=== PATIENT | male | born 1950 | race Caucasian/White ===

== ENCOUNTER → 2016-03-28 | Outpatient (CLI) | payer OTHER ==
[~2016-03-28] MED LIST: ACTOPLUS MET 11 EAC1 PO; ALTACE10 M1 PO; ALTACE10 MG PO; ASPIR 8181 M1 PO; ATORVASTATIN CA40 MG PO; CYMBALTA60 MG PO; DEPAKOTE 250MG250 M1 PO; DULERA 200 MCG/13 GM INH; FLEXERIL PO; HUMALOG100 UNIT/1 SUBQ; INDOMETHACIN 5050 M1 PO; INVOKANA100 MG PO; LANTUS SC; NABUMETONE 750750 M1 PO; NORCO 5-325 TA1 EACH PO; ONDANSETRON HCL4 M2 PO; PERCOCET PO; PREDNISONE 10 M10 M1 PO; PROAIR HFA8.5 GM IH; PROAIR HFA8.5 GM INH; PROTONIX40 M2 PO; PROVENTIL HFA6.7 G1 INH; SIMVASTATIN40 MG PO; SINGULAIR 10 MG10 M1 PO; SYMBICORT160 MCG/4. INH; VICODIN 5-5001 EACH PO; VITAMIN D31000 UNI2 PO; ZOFRAN ODT4 MG PO
== END ==
LOC: RAD 16:20
DX: R06.02 Shortness of breath (principal); J98.11 Atelectasis

== ENCOUNTER → 2017-09-20 | Outpatient (CLI) | payer OTHER ==
[2017-09-20 12:12] LABS: HEMATOCRIT 50.1 % (42.0-52.0); HEMOGLOBIN 16.7 gm/dL (14.0-18.0); MCH 31.4 pg (26.0-34.0); MCHC 33.3 g/dL (28.0-37.0); MCV 94.4 fL (80.0-100.0); RBC 5.31 mil/uL (4.50-6.00); RDW 13.8 % (10.5-14.5)
[2017-09-20 13:12] LABS: ALBUMIN 3.9 g/dL (3.4-5.0); ANION GAP 9 mmol/L (7-16); BUN 24 mg/dL (7-18); CALCIUM 9.9 mg/dL (8.5-10.1); CHLORIDE 97 mmol/L (98-107); CO2 26 mmol/L (21-32); CREATININE 1.8 mg/dL (0.7-1.3); GLUCOSE 385 mg/dL (74-106); SGOT 20 U/L (15-37); SGPT 47 U/L (30-65); SODIUM 132 mmol/L (136-145); TOTAL BILIRUBIN 1.4 mg/dL (<0.1-1.0); TOTAL PROTEIN 7.2 g/dL (6.4-8.2); TROPONIN-I <0.06 ng/mL (<0.06)
== END ==
LOC: ULTRA 08:58 → RAD 08:58
PROVIDERS: Internal Medicine Pulmonary Disease
DX: J44.9 Chronic obstructive pulmonary disease, unspecified (principal); J45.40 Moderate persistent asthma, uncomplicated; M79.89 Other specified soft tissue disorders; M79.662 Pain in left lower leg; M79.661 Pain in right lower leg

== ENCOUNTER → 2017-12-06 | Outpatient (CLI) | payer OTHER | LOC: RAD 09:19 | DX: M47.812 Spondylosis without myelopathy or radiculopathy, cervical region (principal); M47.814 Spondylosis without myelopathy or radiculopathy, thoracic region; E11.9 Type 2 diabetes mellitus without complications; I10 Essential (primary) hypertension; E78.00 Pure hypercholesterolemia, unspecified; K21.9 Gastro-esophageal reflux disease without esophagitis; J45.909 Unspecified asthma, uncomplicated; Z79.4 Long term (current) use of insulin ==

== ENCOUNTER → 2018-07-17 | Outpatient (CLI) | payer OTHER | LOC: RAD 07:42 | DX: J98.4 Other disorders of lung (principal); Z98.890 Other specified postprocedural states ==

== ENCOUNTER → 2018-12-22 | Outpatient (CLI) | payer OTHER ==
[2018-12-22 16:02] LABS: HEMATOCRIT 44.2 % (42.0-52.0); HEMOGLOBIN 14.6 gm/dL (14.0-18.0); MCHC 32.9 g/dL (28.0-37.0); MCV 97.1 fL (80.0-100.0); RBC 4.55 mil/uL (4.50-6.00); WBC 6.3 thou/uL (4.0-11.0)
[2018-12-22 16:20] LABS: ALBUMIN 3.5 g/dL (3.4-5.0); CALCIUM 8.8 mg/dL (8.5-10.1); CREATININE 1.4 mg/dL (0.7-1.3); TOTAL BILIRUBIN 0.7 mg/dL (<0.1-1.0); TOTAL PROTEIN 6.8 g/dL (6.4-8.2)
[2018-12-22 16:45] LABS: POTASSIUM 6.3 mmol/L (3.5-5.1)
== END ==
LOC: ULTRA 09:09 → RAD 09:09 → CAT 09:09
PROVIDERS: Internal Medicine Pulmonary Disease
DX: R91.8 Other nonspecific abnormal finding of lung field (principal); J43.9 Emphysema, unspecified; J98.4 Other disorders of lung; I51.7 Cardiomegaly; M47.814 Spondylosis without myelopathy or radiculopathy, thoracic region

== ENCOUNTER → 2019-01-29 | Outpatient (CLI) | payer OTHER ==
[~2019-01-29] VITALS: Ht 182.9 cm; Wt 88.9 kg
[2019-01-29 08:56] LABS: HEMATOCRIT 48.5 % (42.0-52.0); MCH 31.8 pg (26.0-34.0); MCV 96.3 fL (80.0-100.0); RBC 5.04 mil/uL (4.50-6.00); RDW 13.9 % (10.5-14.5); WBC 6.5 thou/uL (4.0-11.0)
[2019-01-29 09:05] LABS: CALCIUM 10.8 mg/dL (8.5-10.1); CREATININE 1.6 mg/dL (0.7-1.3); POTASSIUM 4.5 mmol/L (3.5-5.1)
[2019-01-29 09:07] VITALS: BP 141/77
--- NOTE | 2019-01-29 09:07 | EKG ---
[place] [address] [facility] [place] [address] ELECTROCARDIOGRAM REPORT Name: GRETEL OVIEDO JR Room #: REG CLI [facility]#: [id number] Admission: 01/29/19 Attend Phys: Marcelo Eastman MD Discharge: Date of : 46 Report #: [id number] THIS REPORT FOR: //name// [facility] Test Date: 2019-01-29 Test Time: 08:45:13 Pat Name: GRETEL OVIEDO Department: Room: Gender: M Disabilities Services Officer: REVA : 1950 Requested By: Jimmie Angeles Order Number: [id number] MD: Dandre Peraza Measurements Intervals Sunset Rate: 96 P: 72 AL: 164 QRS: -26 QRSD: 88 T: 56 QT: 337 QTc: 426 Interpretive Statements Sinus rhythm Borderline left axis deviation Borderline low voltage, extremity leads Compared to ECG 03/31/2015 06:52:42 No significant changes Electronically Signed On 01-29-2019 9:06:57 HAND WELT BUTTER by Dandre Peraza [email or web address] <ELECTRONICALLY SIGNED> By: Dandre Peraza MD, [facility] 01/29/19905 4 Dandre Peraza MD, [facility] /EPI
[2019-01-29 10:27] LABS: BE(vivo) -0.3 mmol/L (-2 to +3); HCO3 25.4 mmol/L (22.0-26.0); pH 7.369 (7.360-7.450); sO2 79.8 % (92.0-98.0)
[2019-01-29 10:28] LABS: BE(vivo) -1.7 mmol/L (-2 to +3); HCO3 22.6 mmol/L (22.0-26.0); PCO2 37.3 mmHg (35.0-45.0); PO2 84.2 mmHg (80.0-100.0); pH 7.401 (7.360-7.450); sO2 96.4 % (92.0-98.0)
[2019-01-29 10:30] LABS: PO2 45.3 mmHg (80.0-100.0)
--- NOTE | 2019-01-29 13:12 | CATHLAB ---
[facility] [address] [place] [address] INVASIVE PROCEDURE REPORT Name: GRETEL OVIEDO JR Room #: REG [facility]#: [id number] Admission: 01/29/19 Attend Phys: Marcelo Eastman MD Discharge: Date of : 46 Report #: [id number] THIS REPORT FOR: //name// APPROVED REPORT Study performed: 01/29/2019 09:44:55 Patient Details The patient is a 68 year-old male Event Personnel Marcelo Eastman Industrial Ecologist, Benitez Camilo RN, Florencia Cruz RN RN, Wendy Bautista RTR Alvarado Mccauley Nancy RTR, FACTORY LAY OUT ENGINEER Monitor, Jose León RTR Monitor Procedures Performed Art Access - R femoral artery* Dimitrios Access - R femoral vein Right and Left Heart Cath w/or w/o Coronarie [id number] [facility] 80487 Initial Mod Sed Same Phys/QHP Gr5y [id number] 89998 Mod Sed Same Phys/QHP Ea [id number] Hemostasis with Manual pressure Indication Dyspnea, Peripheral edema, Cardiomyopathy Risk Factors Hypercholesterolemia, Hypertension, Diabetes Procedure Narrative The Right Groin^ was infiltrated with 1% Lidocaine subcutaneous anesthesia. A Right Heart Catheterization was performed with a 7 Fr. Rosanky-Ranjit catheter and pressure were recorded. Cardiac outputs were obtained by the Florentino method. A PINNACLE 4FR Sheath #[id number] sheath was inserted into the RFA^. Coronary angiography was performed using coronary diagnostic catheters. The right coronary system was accessed and visualized with a JR4 catheter. The left coronary system was accessed and visualized with a JL4 catheter. The left ventricle was accessed and visualized with a pigtail catheter. Left ventricular/Aortic Valve gradient assessed via catheter pullback. Left ventriculogram was performed in 30 degree projection. Hemostasis was obtained with manual pressure following sheath removal without any complications. The patient tolerated the procedure well and there were no complications associated with the procedure. There was no hematoma. Intraoperative Conscious Sedation [facility] [address] [place] [address] INVASIVE PROCEDURE REPORT Name: GRETEL OVIEDO Room #: REG [facility]#: [id number] Admission: 01/29/19 Attend Phys: Marcelo Eastman MD Discharge: Date of : 46 Report #: [id number] Sedation start time: 9:59 Case end Time: 10:42 Fentanyl 50 mcg Versed 1 mg Fluoro Time: 14.11 minutes Dose: DAP 9248.70 cGycm2 761 mGy Contrast Type and Amount: Visipaque 120 ml Coronary Angiography The patient's coronary anatomy is right dominant. Diagnostic Cath Left Main This is a large caliber vessel, patent with no flow-limiting lesions. LAD This is a moderate size caliber vessel, tortuous as it traverses the anterior wall and wraps around the apex. This is a patent vessel, with no flow-limiting lesions. Diagonal 1 This is a patent vessel, with no flow-limiting lesions. Diagonal 2 This is a patent vessel, with no flow-limiting lesions. Circumflex This is a codominant vessel, supplies 3 obtuse marginal arteries. OM1 This is a patent vessel, with no flow-limiting lesions. OM2 This is a patent vessel, with no flow-limiting lesions. OM3 This is a patent vessel, with no flow-limiting lesions. He is Right Coronary This is a patent vessel, with no flow-limiting lesions. R PDA This is a patent vessel, with no flow-limiting lesions. Left Ventriculography The left ventricle is normal in size with diminished contractility. The left ventricular ejection fraction is estimated to be 45%. Hemodynamics The right atrial mean pressure is 29 mmHg. The right ventricular pressure is 34/5 mmHg. The pulmonary artery pressure is 34/18 mmHg with a mean of 24 mmHg. The aortic pressure is 148/75 mmHg with a mean of 110 mmHg. The left ventricular pressure is 134/14 mmHg with a mean of mmHg. The left ventricular end diastolic pressure is 23 mmHg. PaO2 saturation is 84.20 %. Arterial saturation is 95.00 %. The cardiac output and index were assessed using the Florentino method. [facility] [address] [place] [address] INVASIVE PROCEDURE REPORT Name: GRETEL OVIEDO Room #: REG [facility]#: [id number] Admission: 01/29/19 Attend Phys: Marcelo Eastman MD Discharge: Date of : 46 Report #: [id number] cardiac output using the Florentino method is 11.15 L/min. The cardiac index using the Florentino method is 5.28 L/min/m2. Conclusion 1. Angiographically normal coronary arteries. 2. Codominant system. 3. Probable mild global LV dysfunction, EF- 45%. 4. Mildly elevated pulmonary artery pressures. 5. Recommend aggressive risk factor management. <ELECTRONICALLY SIGNED> By: Marcelo Eastman MD 01/29/191310 10 10 Marcelo Eastman MD /INF
== END | disposition home or self-care (01) ==
LOC: CATH 08:14
PROVIDERS: Dermatology MOHS-Micrographic Surgery; Internal Medicine Cardiovascular Disease
DX: I42.9 Cardiomyopathy, unspecified (principal); I10 Essential (primary) hypertension; E78.00 Pure hypercholesterolemia, unspecified; E11.9 Type 2 diabetes mellitus without complications; J43.9 Emphysema, unspecified; Z90.49 Acquired absence of other specified parts of digestive tract; Z98.890 Other specified postprocedural states; Z79.899 Other long term (current) drug therapy; Z87.891 Personal history of nicotine dependence; E78.5 Hyperlipidemia, unspecified; Z79.4 Long term (current) use of insulin

== ENCOUNTER → 2019-08-13 | Outpatient (CLI) | payer OTHER | LOC: SJCVC 09:54 | PROVIDERS: ATTEND Internal Medicine Cardiovascular Disease | DX: R06.09 Other forms of dyspnea (principal); I10 Essential (primary) hypertension; K21.9 Gastro-esophageal reflux disease without esophagitis; E78.00 Pure hypercholesterolemia, unspecified; J44.9 Chronic obstructive pulmonary disease, unspecified; Z90.49 Acquired absence of other specified parts of digestive tract; Z79.899 Other long term (current) drug therapy; Z87.891 Personal history of nicotine dependence ==

== ENCOUNTER → 2020-05-10 | Outpatient (CLI) | payer OTHER | LOC: SJCVC 17:03 | PROVIDERS: ATTEND Internal Medicine Cardiovascular Disease | DX: R06.02 Shortness of breath (principal); J44.9 Chronic obstructive pulmonary disease, unspecified; I10 Essential (primary) hypertension; E78.00 Pure hypercholesterolemia, unspecified; R60.9 Edema, unspecified; Z79.4 Long term (current) use of insulin; Z79.899 Other long term (current) drug therapy; Z87.891 Personal history of nicotine dependence; Z72.89 Other problems related to lifestyle; K21.9 Gastro-esophageal reflux disease without esophagitis ==

== ENCOUNTER → 2020-10-12 | Outpatient (CLI) | payer OTHER | LOC: RAD 10:17 | PROVIDERS: ATTEND Internal Medicine Pulmonary Disease | DX: R91.8 Other nonspecific abnormal finding of lung field (principal) ==

== ENCOUNTER → 2020-10-17 | Outpatient (CLI) | payer OTHER | LOC: CAT 08:34 | PROVIDERS: ATTEND Internal Medicine Pulmonary Disease | DX: J43.8 Other emphysema (principal); J98.4 Other disorders of lung; J84.89 Other specified interstitial pulmonary diseases; M25.78 Osteophyte, vertebrae; M84.48XA Pathological fracture, other site, initial encounter for fracture; M47.814 Spondylosis without myelopathy or radiculopathy, thoracic region; Z90.49 Acquired absence of other specified parts of digestive tract ==